=== PATIENT | female | born 1975 | race African-American/Black ===

== ENCOUNTER 2017-11-20 04:15 | Outpatient (CLI) | payer BC | END 2017-11-20 04:16 | disposition home or self-care (01) | LOC: BICRAD 04:15 | PROVIDERS: ATTEND Family Medicine | DX: S93.401A Sprain of unspecified ligament of right ankle, initial encounter (principal) ==

== ENCOUNTER 2018-07-22 20:02 | Observation (INO) | payer BC ==
[2018-07-22 21:16] LABS: #Basophils 0.1 thou/uL (0.0-0.2); #Eosinphils 0.1 thou/uL (0.0-0.7); #Lymphocytes 1.7 thou/uL (1.20-3.40); #Monocytes 0.4 thou/uL (0.11-0.59); #Neutrophils 3.6 thou/uL (1.40-6.50); %Basophils 1.3 % (0.0-1.0); %Eosinophils 0.9 % (0.0-10.0); %Lymphocytes 29.2 % (21.0-51.0); %Monocytes 7.3 % (0.0-10.0); %Neutrophils 61.3 % (42.0-75.0); Hemoglobin 12.5 g/dL (12.0-16.0); Mean Corpuscular HGB CONC 32.4 g/dL (32.0-36.0); Mean Corpuscular Hemoglobin 28.3 pg (27.0-31.0); Mean Corpuscular Volume 87.3 fL (78.0-98.0); Mean Platelet Volume 8.6 fL (7.4-10.4); Platelet Count 214 thou/uL (130-400); RBC Distribution Width 12.4 % (11.5-14.5); Red Blood Cell (RBC) Count 4.42 mill/uL (4.20-5.40); White Blood Cell (WBC) Count 5.9 thou/uL (4.8-10.8)
[2018-07-22 21:34] LABS: ALT (SGPT) 9 U/L (8-55); AST (SGOT) 13 U/L (5-34); Albumin 3.8 g/dL (3.5-5.0); Alkaline Phosphatase 54 U/L (40-150); Anion Gap 10 mmol/L (10-20); BUN (Urea Nitrogen) 11 mg/dL (7.0-18.7); Bilirubin, Total 0.2 mg/dL (0.2-1.2); Calc. Creatinine Clearance 0 mL/min (70-130); Calcium 8.9 mg/dL (7.8-10.44); Carbon Dioxide 28 mmol/L (22-29); Chloride 103 mmol/L (98-107); Estimated GFR-MDRD Greater than 90; Globulin 3.4 g/dL (2.4-3.5); Glucose 103 mg/dL (70-105); Potassium 3.3 mmol/L (3.5-5.1); Protein, Total 7.2 g/dL (6.0-8.3); Sodium 138 mmol/L (136-145)
[2018-07-22 21:44] LABS: Bilirubin Negative (Negative); Blood, Urine Trace (Negative); Clarity CLOUDY (Clear); Glucose, Urine (Dipstick) Negative (Negative); Leukocyte Negative (Negative); Nitrite Negative (Negative); Protein, Urine (Dipstick) Negative (Neg-Trace); Specific Gravity, Urine 1.011 (1.002-1.036); Urobilinogen 0.2 mg/dL (0.2-1.0)
[2018-07-22 21:46] LABS: Bacteria/HPF 1+ HPF (None Seen); Hyaline Casts/LPF 0-3 HYALINE CAST LPF (0-3 Hyaline); Pathc Cast-AUWi Flag 0.14 (0-2.49); WBC/HPF 0-3 HPF (0-3)
[2018-07-22 21:48] LABS: Yeast-AUWi Flag 90.8 (0-25.0)
--- NOTE | 2018-07-22 23:11 | CT ---
CT BRAIN WITHOUT CONTRAST: HISTORY: Bilateral leg numbness and dizziness. COMPARISON: None. TECHNIQUE: Multiple contiguous axial images were obtained in a CT of the brain without contrast. FINDINGS: The brain is normal in morphology and attenuation without focal lesions or confluent areas of infarct ion. There is no evidence of hydrocephalus, intracranial hemorrhage, or extraaxial fluid collection. The calvarium and overlying soft tissues are unremarkable. The visualized paranasal sinuses and mast oid air cells are well aerated. IMPRESSION: No evidence of acute intracranial abnormality. POS: [facility]
--- NOTE | 2018-07-22 23:37 | MRI ---
MRI CERVICAL SPINE WITHOUT CONTRAST: HISTORY: Lower extremity weakness and bilateral leg numbness. COMPARISON: None. TECHNIQUE: Multiplanar, multisequence MR images were obtained of the cervical spine without contrast. FINDINGS: Generalized disk desiccation is seen. Vertebral bodies demonstrate normal height and alignment witho ut acute fracture or subluxation. The visualized cord demonstrates normal signal throughout. The craniocervical junction is unremarkab le. There is a small generalized concentric disk bulge at C5-C6. No other bulges or protrusions are seen throughout the cervical spine. Mild central canal stenosis is seen at C5-C6. No other areas of melissa rowing of the central canal are seen. No neural foraminal stenosis is seen in the cervical spine. IMPRESSION: 1. No significant cervical spinal cord abnormality. 2. Disk bulge at C5-C6 causing mild central canal stenosis. POS: [facility]
--- NOTE | 2018-07-22 23:56 | MRI ---
MRI THORACIC SPINE WITHOUT CONTRAST: HISTORY: Lower extremity weakness and bilateral leg numbness. Inability to move legs, beginning at 7 o'clock. COMPARISON: None. TECHNIQUE: Multiplanar, multisequence MR images were obtained of the thoracic spine without contrast. FINDINGS: The vertebral bodies and intervertebral disks demonstrate normal height and alignment without fractur e or subluxation. No marrow signal abnormality is present. The visualized cord demonstrates normal signal throughout. No significant posterior bulge or protrus ion is seen. No neural foramina or central canal stenosis is seen in the thoracic spine. The prevertebral and paraspinal soft tissues are unremarkable. IMPRESSION: Unremarkable examination. POS: [facility]
[2018-07-23 03:23] VITALS: BMI 37.4
--- NOTE | 2018-07-23 03:42 | PDOC.FPRHP ---
- History of Present Illness Chief Complaint: Weakness History of Present Illness: Ms. Main presents with one day history of bilateral LE weakness. She reports that at 13:00 she started to feel dizzy and see black spots. She felt like her foot would slip off the brake while driving. She presented to her PCP and found to have BP 156/120. She drove home. Then after bending down in the laundry room she suddenly felt weak, like there was "no communication between my upper and lower body". Her daughter helped her move to living room. Patient reports she has been under a lot of stress lately. She helps to take care of her mom who suffered from a CVA and is a single mom to her daughter. She feels like she can't handle everything anymore and was very tearful. Her brother who previously helped her care for their mother recently moved to [place]. She is scared of what is happening to her. ED Course: CT brain, MRI cervical, thoracic, lumbar - Allergies/Adverse Reactions Allergies Allergy/AdvReac Type Severity Reaction Status Date / Time No Known Drug Allergies Allergy Verified 04/24/13 03:38 - Home Medications Medication Instructions Recorded Confirmed Type No Known 07/23/18 07/23/18 History - History PMHx: anxiety in PSHx: hysterectomy FHx: HTN, CHF and CVA in mother Social: Lives with and helps take care of mother affected by CVA. Denies tobacco or drug use. Rare alcohol use. - Review of Systems General: denies: fever/chills, weight/appetite/sleep changes Eyes: reports: vision changes (dizziness). denies: eye pain ENT: denies: nasal congestion, rhinorrhea Respiratory: reports: shortness of breath. denies: cough, congestion Cardiovascular: denies: chest pain, palpitation, edema Gastrointestinal: denies: nausea, vomiting, diarrhea, abdominal pain Genitourinary: denies: incontinence, dysuria Skin: denies: rashes, lesions Musculoskeletal: denies: pain, tenderness Neurological: reports: numbness, weakness Psychological: reports: anxiety - Vital signs BP: 116/83 HR: 65 RR: 18 Tmax: 97.8 Pox: 98% on RA Wt: 95 kg - Physical Exam Constitutional: other (T) HEENT: normocephalic and atraumatic, PERRLA, EOMI, conjunctiva clear, grossly normal vision, grossly normal hearing, MMM, oropharynx clear Neck: supple, trachea midline, no LAD, no thyromegaly Heart: RRR, normal S1/S2 Lungs: CTAB, no respiratory distress, no rales/rhonchi, no wheezing Abdomen: soft, non-tender, bowel sounds present, no masses/distention Musculoskeletal: normal structure, normal tone -Musculoskeletal: decreased ROM bilateral LE, 3/5 LLE, 4/5 RLE muscle strength. Upper extremities full ROM and strength. R heel to monson normal. L heel to monson inhibited by weakness. Neurological: CN II-XII intact, normal sensation Skin: no rash/lesions, good turgor, capillary refill <2 seconds Heme/Lymphatic: no unusual bruising or bleeding Psychiatric: other (Anxious, tearful) FMR H&P: Results - Labs Result Diagrams: 07/22/18 21:05 07/22/18 21:05 Lab results: WBC 5.9 thou/uL (4.8-10.8) 07/22/18 21:05 Hgb 12.5 g/dL (12.0-16.0) 07/22/18 21:05 Hct 38.6 % (36.0-47.0) 07/22/18 21:05 MCV 87.3 fL (78.0-98.0) 07/22/18 21:05 Plt Count 214 thou/uL (130-400) 07/22/18 21:05 Neutrophils % 61.3 % (42.0-75.0) 07/22/18 21:05 ESR Westergren 20 mm/hr (Less than 20) 07/22/18 21:05 Sodium 138 mmol/L (136-145) 07/22/18 21:05 Potassium 3.3 mmol/L (3.5-5.1) L 07/22/18 21:05 Chloride 103 mmol/L (98-107) 07/22/18 21:05 Carbon Dioxide 28 mmol/L (22-29) 07/22/18 21:05 BUN 11 mg/dL (7.0-18.7) 07/22/18 21:05 Creatinine 0.82 mg/dL (0.6-1.1) 07/22/18 21:05 Glucose 103 mg/dL (70-105) 07/22/18 21:05 Calcium 8.9 mg/dL (7.8-10.44) 07/22/18 21:05 Total Bilirubin 0.2 mg/dL (0.2-1.2) 07/22/18 21:05 AST 13 U/L (5-34) 07/22/18 21:05 ALT 9 U/L (8-55) 07/22/18 21:05 Alkaline Phosphatase 54 U/L (40-150) 07/22/18 21:05 C-Reactive Protein Less than 0.50 mg/dL (= or < 0.5) 07/22/18 21:05 Serum Total Protein 7.2 g/dL (6.0-8.3) 07/22/18 21:05 Albumin 3.8 g/dL (3.5-5.0) 07/22/18 21:05 Urine Ketones Negative mg/dL (Negative) 07/22/18 21:23 Urine Blood Trace (Negative) H 07/22/18 21:23 Urine Nitrite Negative (Negative) 07/22/18 21:23 Ur Leukocyte Esterase Negative (Negative) 07/22/18 21:23 Urine RBC 4-6 HPF (0-3) 07/22/18 21:23 Urine WBC 0-3 HPF (0-3) 07/22/18 21:23 Ur Squamous Epith Cells 7-10 HPF (0-3) H 07/22/18 21:23 Urine Bacteria 1+ HPF (None Seen) H 07/22/18 21:23 FMR H&P: A/P - Problem List (1) Bilateral leg weakness Current Visit: Yes Status: Acute Code(s): R29.898 - OTH SYMPTOMS AND SIGNS INVOLVING THE MUSCULOSKELETAL SYSTEM (2) Anxiety Current Visit: Yes Status: Acute Code(s): F41.9 - ANXIETY DISORDER, UNSPECIFIED - Plan 43 yo F presents with b/l LE weakness. Bilateral LE weakness - Ddx includes psychosomatic origin/conversion disorder vs myelopathy vs polyneuropathy vs myopathy - CT brain no acute intracranial process - MRI cervical shows disk bulge @ C5-6, mild central canal stenosis - MRI thoracic and lumbar unremarkable - Negative imaging and clinical presentation do not currently suggest acutely dangerous etiology - Consult neurology in am, appreciate recommendations Anxiety - has history of anxiety during - pt tearful and under a lot of stress Diet: regular Dispo: admit to stroke unit for observation FMR H&P: Upper Level - Pertinent history 43F with no significant PMH p/w 12 hour history of bilateral lower extremity weakness. Around 1:00 PM yesterday she started to notice black spots in her vision with some associated light headedness. She was evaluated at her PCP's office and found to have normal blood pressure. Visual symptoms resolved at that time. On the care ride to work she noticed her feet becoming numb with paresthesias. Around 7:00PM that evening she was doing laundry when suddenly she lost he ability to move her legs. She was standing up but was unable to take any steps or move her feet. She was helped to a chair and has been unable to use her legs since that time. She denies any traumatic etiology to her symptoms. She denies bowel/bladder incontinence, saddle anesthesia, headache, palpitations, chest pain, previous spinal surgery, similar episodes in the past. Patient very tearful during re-examination by Dr. Herrera. She is under a lot of stress at home. 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 - Pertinent findings Vital signs: 116/83mmHg 65 bpm 18 breaths/min 97.8F 98% on RA Gen: A&Ox3; in no distress HEENT: NC/AT CV: RRR; no murmurs Pulm: CTA-B GI: soft; non tender; non distended Neuro: CNII-XII intact; BUE strength intact; unable to flex or extend at the hip , knee, or ankle - Plan Date/Time: 07/23/18 0341 1. Bilateral LE weakness - High suspicion for conversion DO - CT brain negative - MRI cervical shows disk bulge @ C5-6 causing mild central canal stenosis - MRI thoracic and lumbar unremarkable - no FND to suggest stroke - Consult neurology in am I, Juan Javier, have evaluated this patient and agree with findings/plan as outlined by risk management intern resident. Pertinent changes/additions are listed here. Attending Addendum - Attending Addendum Date/Time: 07/23/18 1602 I personally evaluated the patient and discussed the management with Dr. Herrera /Yaya. I agree with the History, Examination, Assessment and Plan documented above with any addition or exceptions noted below. Please see event note dated 07/23/18 for full details.
--- NOTE | 2018-07-23 11:24 | MRI ---
PRELIMINARY REPORT/[facility]/EMERGENTY AFTER-HOURS PROCEDURE MR Lumbar Spine Without Intravenous Contrast EXAM DATE/TIME: 07/22/2018 11:48 PM CLINICAL HISTORY: 43 years old, female; Signs and symptoms; Numbness and weakness; Patient HX: Bilateral lower extremit y weakness, no injury TECHNIQUE: Magnetic resonance images of the lumbar spine without intravenous contrast in multiple planes. COMPARISON: No relevant prior studies available. FINDINGS: Vertebrae: No acute fracture or malalignment in the lumbar spine. Epidural space: No epidural or intrathecal mass or fluid collection. Interspaces: Multilevel degenerative disc disease with dehydration of the L5-S1 disc. Spinal cord: The distal cord and conus and filum terminale appear normal. Soft tissues: Unremarkable. Retroperitoneal space: The visualized retroperitoneum otherwise unremarkable. DISCS/SPINAL CANAL/NEURAL FORAMINA: Mild broad-based posterior disc bulges/protrusions and bilateral facet hypertrophy particularly at L3 -4, L4-5, L5-S1; degenerative changes contribute to minimal bilateral inferior foraminal narrowing at L5-S1 level. No focal osseous lesions. No paraspinal or intraspinal mass or hematoma. IMPRESSION: 1. No acute fracture or malalignment in the lumbar spine. 2. Multilevel chronic degenerative disc and facet osteoarthritis as described above particularly invo lving L5-S1. Thank you for allowing us to participate in the care of your patient. Dictated and Authenticated by: Aiden Lindsay MD 07/23/2018 1:31 AM Central Time ([place] & [place]) FINAL REPORT MRI LUMBAR SPINE: HISTORY: Weakness. TECHNIQUE: Multiplanar, multisequence, noncontrast enhanced MRI of the lumbar spine obtained. FINDINGS: For the purposes of this dictation, the last freely mobile vertebral body will be considered to be th e L5 vertebral body. All other vertebral bodies numbered according to this. T12-L1/L1-L2: Unremarkable. L2-L3: Mild bilateral facet hypertrophy is seen. The central canal and neural foramen are patent. L3-L4: There is a broad-based disk bulge with bilateral facet and ligamentum flavum hypertrophy. No significant degree of central or neural foraminal narrowing is seen. L4-L5: There is some disk desiccation seen. There is a broad-based disk bulge with bilateral facet and ligamentum flavum hypertrophy. This results in a minimal but not significant degree of L4-L5 luke tral stenosis. Some fluid is seen in the right and left L4-L5 facet joints L5-S1: Disk desiccation is seen. There is a broad-based disk bulge with bilateral facet hypertrophy . No significant degree of central stenosis seen. Moderate bilateral neural foraminal narrowing is seen, due to the facet hypertrophy as well, as the broad-based disk bulge. There is some fluid seen in the L5-S1 facet joints. IMPRESSION: 1. L2-L3, L3-L4, L4-L5, and L5-S1 facet hypertrophic changes. 2. No significant degree of central spinal stenosis seen. 3. Mild lower lumbar neural foraminal narrowing is seen. 4. Fluid is seen in the lower lumbar facet joints. This exam was originally dictated by [facility]. I concur with the dictation from [facility].
--- NOTE | 2018-07-23 11:38 | PDOC.EVN ---
Attending Addendum - Attending Addendum Date/Time: 07/23/18 4672 I personally evaluated the patient and discussed the management with Dr. Herrera /Yaya. I agree with the History, Examination, Assessment and Plan documented in the electronic H&P with any addition or exceptions noted below. Patient with no medical history here with acute onset of lower extremity paresthesias and subjective weakness. She reports the onset of symptoms in association with dizziness, shortness of breath, and vision changes that occurred yesterday morning. Reports that she was able to ambulate and maintain posture despite the sensation of weakness and that she "had no control" over her legs. Improved after calming herself but recurred later. She never lost tone in her legs and never collapsed. She does endorse a history of panic attacks and reports her symptoms started after that attack sensation began. She does endorse a huge amount of family stress that is taking its toll and leading to loss of sleep. She currently feels better. She has normal strength and sensation in the b/l LE. She currently feels well. Labs benign and MRI of spine performed by ER shows only some mild facet arthritis but no process ongoing that would lead to b/l extremity weakness/sensory changes. Patient to be observed today for likely paresthesias 2/2 panic disorder. Will encourage ambulation and consider PT consult. IF able to ambulate, will likely discharge home later today with instructions to follow up with PCP for further eval and treatment of her anxiety and increased stress.
[2018-07-23] MEDS ORDERED: Acetaminophen 325 MG TAB PO PRN (12:43)
--- NOTE | 2018-07-23 15:23 | MRI ---
MRI BRAIN WITH AND WITHOUT GADOLINIUM CONTRAST: HISTORY: Left upper extremity weakness. FINDINGS: There is no evidence of acute intracranial hemorrhage or infarct. The ventricles appear normal in si ze, shape, and position. There is no mass effect, shift of midline structures, or abnormal areas of contrast enhancement. The visualized paranasal sinuses remain well aerated. IMPRESSION: No acute intracranial abnormalities demonstrated. POS: [facility]
--- NOTE | 2018-07-24 00:08 | CON ---
DATE OF CONSULTATION: 07/23/2018 NEUROSURGICAL CONSULTATION HISTORY OF PRESENT ILLNESS: Ms. Main is a 43-year-old female who reports to the emergency department last night for lateral leg weakness. She states that yesterday, she had felt dizzy on and off throughout the day. She was worried that it was her blood pressure and went to her primary care office and had it checked. She states that it was 156/120, which is abnormal for her; however, she tried to go back to work even though she was still feeling "off." Later that day, she was trying to do some laundry and she bent down, felt dizzy and then was unable to stand back up. She said she could not make her feet move. She had her daughter helped her into the living room and then went to the emergency room. The patient denies any loss of bowel or bladder control and she denies any pain in her back or lower extremities. She does state that she has a small amount of numbness in her toes. She states that last week she felt a little bit off balance, but that she has no complaints. The patient states that she has a lot going on with her home life, patient has been stressed. She is taking care of her mother who suffered from a cardiovascular accident and she is a single mother to her daughter and she is having a hard time handling everything that is happening currently. At this time, patient is resting comfortably in her hospital room. She is surrounded by many friends and family , does not appear to be in any visible distress, moving upper extremity well, able to move lower extremity minimally; however, she seems to shake a bit when asked to move and tenses up her muscles significantly in lower extremity. REVIEW OF SYSTEMS: Patient denies any fever or chills. She denies any changes in vision or changes in hearing, no difficulty swallowing or sore throat. No chest pain, shortness of breath, or palpitations. She denies any cough, nausea or vomiting. She denies any constipation or diarrhea. The patient denies back pain or numbness or tingling. PAST MEDICAL HISTORY: History of hysterectomy, anxiety. PAST SURGICAL HISTORY: Hysterectomy. SOCIAL HISTORY: The patient denies alcohol, drug use, or any smoking history. She is a single mother to one daughter and is currently taking care of her mother after a cardiovascular accident. ALLERGIES: No known drug allergies. MEDICATIONS: No medications. PHYSICAL EXAMINATION: VITAL SIGNS: Temperature was 97.9, heart rate 66, respiratory rate 16, O2 sat 100 on room air, blood pressure 130/87. CONSTITUTIONAL: The patient is afebrile, normotensive. She is nontoxic in appearance. She is resting comfortably in her hospital bed and does not appear to be in any visible distress. She is alert and oriented. HEENT: Head is normocephalic, atraumatic. Vision is intact. Hearing is intact. Pupils are equal, round, reactive to light. Extraocular movements are intact. Moist mucous membranes. RESPIRATORY: Normal work of breathing room air. Symmetrical bilateral chest rise. CARDIOVASCULAR: Regular rate and rhythm. EXTREMITIES: Upper extremities, the patient is able to move upper extremities with no deficits, 5/5 strength motor in deltoids, biceps, triceps, wrist flexion and extension and hand intrinsic muscles. No sensory deficits noted. Lower extremities: Patient is when asked to wiggle toes, the patient is able to successfully wiggle her toes on her right side; on the left side, she appears to tense up and visibly focused on moving her toes; however, she does not do it if I physically move her ankle. There is resistance there to my motion. Patient is not flaccid. The patient will move right side of her leg and hip flexion and extension, knee flexion and extension and dorsiflexion plantar flexion against resistance. The patient attempts to move left leg and she tightens up her muscles and shakes some putting forth a show of great effort ; however, stiffness seems to be more assigned than unable to move or no activity there at all. NEUROLOGIC: The patient is alert and oriented x3. Her speech is normal spontaneous and fluent. Cranial nerves II-XII are intact. There are no focal motor deficits in the upper extremities. No focal sensory deficits. IMAGING: CT of the head was negative. MRI of the cervical spine shows no significant cervical spinal cord abnormalities. There is a mild central stenosis at C5-C6 with no significant cord compression. MRI of the thoracic spine, there is no significant cord compression. MRI of the lumbar spine shows no significant cord compression. There are multiple levels of chronic degenerative disk disease and facet osteoarthritis at L5-1, but no significant compression of any of the central or foraminal areas. ASSESSMENT AND PLAN: At this time, Ms. Main has no significant compression of her entire spine. She appears to be giving a good deal of effort in moving her lower extremities; however, I am unsure if the patient is giving an honest effort in trying to move her lower extremities. She can move the right one, however, the left one is less mobile, but she did move it and she has good contractions in those muscles. The patient does have good joint motor sense bilaterally. Her MRIs of her spine are negative and there is no surgical intervention that would explain lower extremity weakness. We would like to order an MRI with and without contrast of the brain to see if there is any reason for lower extremity weakness coming from there since there is not a reason coming from the spinal cord. If MRI is negative we need a consult with Neurology. [facility]
--- NOTE | 2018-07-24 05:55 | PDOC.FM ---
- Subjective Subjective: Patient feeling well and stronger today, able to ambulate. Feeling slight weakness in left leg. Left plantar surface feels slightly numb. - Objective Vital Signs & Weight: Vital Signs (12 hours) Temp Pulse Resp BP BP Pulse Ox 07/24/18 04:14 98.0 F 54 L 16 135/76 99 07/23/18 20:14 97.7 F 60 21 H 07/23/18 19:02 97.7 F 60 21 H 127/72 98 Weight Weight 94.438 kg I&O: 07/22/18 07/23/18 07/24/18 06:59 06:59 06:59 Intake Total 240 480 Output Total 600 Balance 240 -120 Result Diagrams: 07/22/18 21:05 07/22/18 21:05 <Natty Reynolds - Last Filed: 07/24/18 09:08> - Objective Vital Signs & Weight: Vital Signs (12 hours) Temp Pulse Resp BP BP Pulse Ox 07/24/18 08:00 97.9 F 62 18 07/24/18 07:31 97.9 F 62 18 126/83 96 07/24/18 04:14 98.0 F 54 L 16 135/76 99 Weight Weight 94.438 kg I&O: 07/23/18 07/24/18 07/25/18 06:59 06:59 06:59 Intake Total 240 840 Output Total 600 Balance 240 240 Result Diagrams: 07/22/18 21:05 07/22/18 21:05 <Dariusz Hartley - Last Filed: 07/24/18 11:13> Phys Exam - Physical Examination HEENT: PERRLA, moist MMs Neck: no nodes, supple Respiratory: no wheezing, no rales, no rhonchi, clear to auscultation bilateral Cardiovascular: RRR, no significant murmur Gastrointestinal: soft, non-tender, no distention, positive bowel sounds Musculoskeletal: no edema, pulses present 4/5 strength in left leg on leg extension and plantar flexion, 5/5 dorsifle ion. Rt side 5/5 strength. UE 5/5 strength bilaterally. Neurological: moves all 4 limbs slight numbness plantar surface left foot. Psychiatric: normal affect, A&O x 3 Skin: normal turgor, cap refill <2 seconds <Natty Reynolds - Last Filed: 07/24/18 09:08> Dx/Plan (1) Anxiety Code(s): F41.9 - ANXIETY DISORDER, UNSPECIFIED Status: Acute (2) Bilateral leg weakness Code(s): R29.898 - OTH SYMPTOMS AND SIGNS INVOLVING THE MUSCULOSKELETAL SYSTEM Status: Acute (3) Hypokalemia Code(s): E87.6 - HYPOKALEMIA Status: Acute - Plan Plan: 43 yo F presents with b/l LE weakness. Bilateral LE weakness - Strong suspicion for conversion disorder, as patient is experiencing a lot of stress at home, with negative imaging and clinical presentation that do not currently suggest acutely dangerous etiology. Weakness L>R, improved since admission. Patient stable to be discharged to home today. - CT brain no acute intracranial process - MRI cervical shows disk bulge @ C5-6, mild central canal stenosis - MRI thoracic and lumbar unremarkable - MRI Brain - no acute process - Neurology consulted, appreciate recs - CRP <.5 Anxiety - has history of anxiety during , difficult home life caring for her mother and high school daughter, with family member moving away recently - pt tearful and under a lot of stress - patient states her sisters have come along side her this week and are promising to be available to assist her, and help with care for her mother and daughter Hypokalemia -replace with 40 mg PO potassium Insomnia - Ambien 5 mg for sleep on discharge Diet: regular Code status: full <Natty Reynolds - Last Filed: 07/24/18 09:08> (1) Bilateral leg weakness Code(s): R29.898 - OT SYMPTOMS AND SIGNS INVOLVING THE MUSCULOSKELETAL SYSTEM Status: Acute (2) Anxiety Code(s): F41.9 - ANXIETY DISORDER, UNSPECIFIED Status: Acute <Dariusz Hartley R - Last Filed: 07/24/18 11:13> Attending Addendum - Attending Addendum Date/Time: 07/24/18 1112 I personally evaluated the patient and discussed the management with Dr. Reynolds. I agree with the History, Examination, Assessment and Plan documented above with any addition or exceptions noted below. Patient doing well today, and reports a desire to go home. She is able to ambulate. Stable for discharge with outpatient follow up with neurology if her issues continue. No MRI evidence to explain her symptoms and likely a conversion disorder type issue related to her stress and anxiety. <Dariusz Hartley - Last Filed: 07/24/18 11:13>
[2018-07-24] MEDS ORDERED: Potassium Chloride 20 MEQ TAB PO SCH (09:15)
[2018-07-24 12:06] VITALS: BP 129/77; TEMP 98.3
--- NOTE | 2018-07-26 10:14 | DIS-2 ---
DATE OF ADMISSION: 07/23/2018 DATE OF DISCHARGE: 07/24/2018 ADMITTING ATTENDING: Dr. Selena Wilde DISCHARGE ATTENDING: Dr. Dariusz Hartley CONSULTATIONS: Neurosurgery, Suyapa Boss PA-C. PROCEDURES: 1. Brain CT 07/22/2018; no evidence of acute intracranial abnormality. 2. Cervical spine MRI on 07/22/2018: Impression: No significant cervical spinal cord abnormality. Disk bulge at C5-C6 causing mild central canal stenosis. 3. Thoracic spine MRI 07/22/2018. Impression; unremarkable examination. 4. Lumbar spine MRI on 07/22/2018. Impression: L2-3, L3-4, L4-5 and L5-S1 facet hypertrophic kirby es. No significant degree of central spinal stenosis seen. Mild lower lumbar neural foraminal narro wing is seen. Fluid is seen in the lower lumbar facet joint. 5. Brain MRI on 07/23/2018. Impression: No acute intracranial abnormality demonstrated. PRIMARY DIAGNOSES: Bilateral lower extremity weakness most likely secondary to conversion disorder. SECONDARY DIAGNOSES: Anxiety, hypokalemia, insomnia. DISCHARGE MEDICATIONS: Ambien 5 mg p.o. at bedtime p.r.n. for insomnia. DISCONTINUED MEDICATIONS: None. HOSPITAL COURSE: Ms. Main presented with 1 day history of bilateral lower extremity weakness. Elio brooks reported that at 1 in the afternoon, she started to feel dizzy and see black spots. She felt like her foot would slip off of the brake when she was driving. She presented to her PCP and was found to have a blood pressure of 156/120. She drove home. Then, after being down in the laundry room, she suddenly felt weak like there was "no communication between my upper and lower body". Her daughter roshan elped her move to the living room. The patient reported she had been under a lot of stress lately. She reported taking care of her mom who suffered from a CVA and she is also a single mom to her daugh [facility]. She has felt like she could not handle everything anymore and was very tearful. Her brother wh o previously helped her care for her mother recently moved away to [place]. She was scared of what wa s happening to her. In the ED, she received a CT of brain, MRI of her cervical spine, thoracic spine and lumbar spine. There is a strong suspicion for conversion disorder as the patient has experience d a lot of stress at home. She had negative imaging and a clinical presentation that currently did n ot suggest acutely dangerous etiology. Her weakness is greater left over right on her second day of admission and improved greatly. The patient was able to walk on her own and was showing marked impro vement. Neurology was consulted. Her anxiety, she has a history of anxiety and a very stressful sit uation. She reported that her sisters were going to come alongside to help her and be available for her to help with her mother and her daughter. For her hypokalemia, it was replaced with p.o. potassi um. For insomnia, she was sent home with Ambien 5 mg to help with her sleep. DISPOSITION: Stable. DISCHARGE INSTRUCTIONS: 1. Location: Home. 2. Diet: Regular. 3. Activity: As tolerated. 4. Followup: Follow up with PCP, Dr. Dupree within 7 days.
== END 2018-07-24 14:28 | disposition home or self-care (01) ==
LOC: ERS 20:02 → 2SW 07-23 01:45
PROVIDERS: ADMIT Student in an Organized Health Care Education/Training Program; ATTEND Student in an Organized Health Care Education/Training Program
DX: R29.898 Other symptoms and signs involving the musculoskeletal system (principal); F41.9 Anxiety disorder, unspecified; E87.6 Hypokalemia; G47.00 Insomnia, unspecified
CPT/HCPCS: 36415; 70450; 70553; 72141; 72146; 72148; 80053; 81003; 81015; 85025; 85652; 86140; G0378; G8978-GP-CL; G8979-GP-CJ; G8987-GO-CK; G8988-GO-CI

== ENCOUNTER 2021-03-21 04:48 | Observation (INO) | payer BC ==
[2021-03-21 05:28] LABS: #Basophils 0.1 thou/uL (0.0-0.2); #Eosinphils 0.1 thou/uL (0.0-0.7); #Lymphocytes 2.3 thou/uL (1.20-3.40); #Monocytes 0.6 thou/uL (0.11-0.59); #Neutrophils 3.2 thou/uL (1.40-6.50); %Basophils 1.1 % (0.0-1.0); %Eosinophils 1.6 % (0.0-10.0); %Lymphocytes 36.5 % (21.0-51.0); %Neutrophils 50.9 % (42.0-75.0); Hemoglobin 12.6 g/dL (12.0-16.0); Mean Corpuscular HGB CONC 31.6 g/dL (32.0-36.0); Mean Corpuscular Hemoglobin 27.1 pg (27.0-31.0); Mean Corpuscular Volume 85.6 fL (78.0-98.0); Platelet Count 202 thou/uL (130-400); RBC Distribution Width 12.5 % (11.5-14.5); Red Blood Cell (RBC) Count 4.66 mill/uL (4.20-5.40); White Blood Cell (WBC) Count 6.3 thou/uL (4.8-10.8)
[2021-03-21 05:51] LABS: ALT (SGPT) 17 U/L (8-55); AST (SGOT) 21 U/L (5-34); Albumin 3.9 g/dL (3.5-5.0); Alkaline Phosphatase 82 U/L (40-110); Anion Gap 13 mmol/L (10-20); BUN (Urea Nitrogen) 17 mg/dL (7.0-18.7); Bilirubin, Total 0.2 mg/dL (0.2-1.2); Calc. Creatinine Clearance 0 mL/min (70-130); Calcium 9.5 mg/dL (7.8-10.44); Carbon Dioxide 27 mmol/L (22-29); Chloride 101 mmol/L (98-107); Globulin 3.7 g/dL (2.4-3.5); Glucose 115 mg/dL (70-105); Potassium 3.2 mmol/L (3.5-5.1); Protein, Total 7.6 g/dL (6.0-8.3); Sodium 138 mmol/L (136-145)
[2021-03-21] MEDS ORDERED: Potassium Chloride 20 MEQ TAB ONE (06:02)
[2021-03-21] MEDS ORDERED: Aspirin Chewable 81 MG TAB ONE (06:03)
[2021-03-21] MEDS ORDERED: Ondansetron ODT 4 MG TAB PO PRN (08:02)
[2021-03-21 08:39] LABS: Bacteria/HPF None Seen HPF (None Seen); Bilirubin Negative (Negative); Blood, Urine 1+ (Negative); Clarity Clear (Clear); Glucose, Urine (Dipstick) Normal (Negative); Ketone, Urine Negative (Negative); Leukocyte Negative Leu/uL (Negative); Nitrite Negative (Negative); Protein, Urine (Dipstick) 10 mg/dL (Neg-Trace); RBC/HPF 0-3 HPF (0-3); Specific Gravity, Urine 1.028 (1.002-1.036); Squamous Epithelial 0-3 HPF (0-3); Urobilinogen Normal mg/dL (Less than 2); WBC/HPF 0-3 HPF (0-3)
[2021-03-21 15:10] LABS: SARS-CoV-2 PCR by NAA Not Detected (NotDetected)
== END 2021-03-21 14:14 | disposition home or self-care (01) ==
LOC: ERS 04:48 → ERHOLD 06:04
PROVIDERS: ADMIT Family Medicine; ATTEND Family Medicine
DX: F41.9 Anxiety disorder, unspecified (principal); E87.6 Hypokalemia; J32.1 Chronic frontal sinusitis; Z79.899 Other long term (current) drug therapy; Z20.822 Contact with and (suspected) exposure to COVID-19
CPT/HCPCS: 36415; 36416; 70450; 70496; 70498; 70551; 80053; 80061; 81003; 81015; 85025; 87635; 93005; U0003; U0005

== ENCOUNTER 2022-03-14 08:51 | Outpatient (CLI) | payer BC | END 2022-03-14 08:52 | disposition home or self-care (01) | LOC: BICMAMMO 08:51 | PROVIDERS: ATTEND Family Medicine | DX: Z12.31 Encounter for screening mammogram for malignant neoplasm of breast (principal) | CPT/HCPCS: 77063; 77067 ==